=== PATIENT | female | born 1955 | race Caucasian/White ===

== ENCOUNTER → 2020-03-25 10:08 | Outpatient (CLI) | payer OTHER, SELFPAY ==
--- NOTE | 2020-03-25 | DI.MG.S_ITS ---
BILATERAL DIGITAL SCREENING MAMMOGRAM 3D/2D WITH CAD: 03/25/2020 CLINICAL: Routine screening. Comparison is made to exams dated: 03/28/2017 mammogram, 03/27/2016 mammogram, and 10/11/2014 mammogram - [facility]. There are scattered fibroglandular elements in both breasts. Current study was also evaluated with a Computer Aided Detection (CAD) system. No significant masses, calcifications, or other findings are seen in either breast. There has been no significant interval change. IMPRESSION: NEGATIVE There is no mammographic evidence of malignancy. A 1 year screening mammogram is recommended. This exam was interpreted at Station ID: [id number]. NOTE: For mammograms, a report in lay terms will be sent to the patient. Approximately 15% of breast malignancies will not be visualized mammographically. In the management of a palpable breast mass, a negative mammogram must not discourage biopsy of a clinically suspicious lesion. Electronically Signed By: Félix jefferson/garrett:03/27/2020 07:35:12 letter sent: Normal Exam ACR BI-RADS Category 1: Negative 3341F
== END ==
PROVIDERS: PCP Family Medicine; Referring Provider Family Medicine; Visit Provider Family Medicine
DX: Z12.31 Encounter for screening mammogram for malignant neoplasm of breast (principal)
CPT/HCPCS: 77063; 77067

== ENCOUNTER → 2020-04-12 14:50 | Outpatient (CLI) | payer OTHER, SELFPAY ==
--- NOTE | 2020-04-12 15:17 | DI.ECHO.S_ITS ---
Echocardiogram Report + + :Name: SREEDHAR ATWOOD Study Date: 04/12/2020 Height: 64 in : :[facility] Weight: 150 lb : : Gender: Female BSA: 1.7 m2 : :: 1955 Age: 65 yrs BP: 110/64 mmHg: :Reason For Study: CR (E) ST Syndrom : : Performed By: Hyun Gutierrez : :Referring: ALLI DILL : + + Interpretation Summary The left ventricle is normal in size, wall thickness, and systolic function without any focal wall motion abnormalities with the ejection fraction visually estimated to be 65-70%. Left ventricular global longitudinal strain average is normal at -20.2% (normal is more negative than -20%). Diastolic parameters suggest probable normal left ventricular diastolic function and normal filling pressures. The right ventricle is normal in size and function. Pulmonary artery pressures cannot be estimated because of the lack of a measurable TR jet velocity but the IVC suggests a CVP of around 3 mmHg. Both atria are normal in size. There is no significant valvular heart disease. The ascending aorta is mildly enlarged. Procedure: A two-dimensional transthoracic echocardiogram with color flow and Doppler was performed. The study quality was technically adequate. There is no prior echocardiogram noted for this patient. The patient was in normal sinus rhythm during the exam. The heart rate ranged between 64-77 bpm during the study. Left Ventricle: The left ventricle is normal in size, wall thickness, and systolic function without any focal wall motion abnormalities. The ejection fraction is estimated to be 65-70%. Left ventricular global longitudinal strain average is normal at -20.2% (normal is more negative than -20%). Diastolic parameters suggest probable normal left ventricular diastolic function and normal filling pressures. Right Ventricle: The right ventricle is normal in size and function. Atria: Both atria are normal in size. There is no Doppler evidence for an interatrial shunt. Mitral Valve: There is mild mitral annular calcification. The mitral valve leaflets are slightly calcified. There is trace mitral regurgitation. Aortic Valve: The aortic valve is trileaflet. The aortic valve opens well. There is no aortic valve stenosis. No aortic regurgitation is present. Tricuspid Valve: The tricuspid valve is normal in structure and function. There is trace tricuspid regurgitation. Pulmonary artery pressures cannot be estimated because of the lack of a measurable TR jet velocity but the IVC suggests a CVP of around 3 mmHg. Pulmonic Valve: The pulmonic valve is normal in structure and function. There is a trace or physiologic amount of pulmonic regurgitation. There is no significant valvular heart disease. Great Vessels: The aortic root is normal size. The ascending aorta is mildly enlarged. The IVC is of normal diameter and collapses greater than 50% with a sniff. This suggests a low right atrial pressure of 3 mm Hg. Pericardium/ Pleura There is no pericardial effusion. There is no pleural effusion. MMode/2D Measurements & Calculations LVIDd: 4.7 cm LVOT diam: 2.0 cm LVIDs: 3.1 cm Ao root diam: 3.1 cm FS: 34.0 % asc Aorta Diam: 3.4 cm EPSS: 0.43 cm Ao Arch Diam (Prox Trans): 2.6 cm IVSd: 0.78 cm LVPWd: 0.90 cm LV suazo. diameter/BSA (cm/m^2): 2.7 LV sys. diameter/BSA (cm/m^2): 1.8 LA A2 area: 18.9 cm2 RA long axis: 4.8 cm LA A4 area: 16.9 cm2 RA area: 12.4 cm2 LA length (vol): 5.2 cm RA vol: 27.3 ml LA vol: 52.6 ml RA : 15.8 ml/m2 LA vol index: 30.4 ml/m2 IVC diam: 1.5 cm RVD1 (basal): 3.5 cm TAPSE: 2.6 cm Doppler Measurements & Calculations Ao V2 max: 164.8 cm/sec LVOT Max Nelson: 132.5 cm/sec Ao V2 mean: 116.8 cm/sec LV V1 max P.0 mmHg Ao max P.9 mmHg LV V1 VTI: 30.5 cm Ao mean P.0 mmHg GAB(I,D): 2.6 cm2 Ao V2 VTI: 35.3 cm GAB(V,D): 2.4 cm2 sev ratio: 0.86 GAB indexed to BSA (cm^2/m^2): 1.5 MV E max nelson: 77.4 cm/sec PA V2 max: 95.8 cm/sec MV A max nelson: 106.3 cm/sec PA V2 mean: 64.2 cm/sec MV E/A: 0.73 PA mean P.9 mmHg Med Peak E' Nelson: 8.2 cm/sec PA pr(Accel): 56.7 mmHg E/E' med: 9.4 Lat Peak E' Nelson: 8.3 cm/sec E/E' lat: 9.4 E/e' average: 9.4 MV dec time: 0.32 sec [facility] 91.8 ml Reading Physician:PM
== END ==
PROVIDERS: PCP Family Medicine; Referring Provider Internal Medicine Rheumatology; Visit Provider Internal Medicine Rheumatology
DX: M34.1 CR(E)ST syndrome (principal)
CPT/HCPCS: 93306

== ENCOUNTER → 2020-04-18 09:31 | Outpatient (CLI) | payer OTHER, SELFPAY ==
[2020-04-19 14:46] LABS: COVID19 Sendout Not Detected (Not Detect)
== END ==
PROVIDERS: PCP Family Medicine; Visit Provider Physician Assistant
DX: Z01.812 Encounter for preprocedural laboratory examination (principal)
CPT/HCPCS: 87635

== ENCOUNTER → 2020-04-21 12:58 | Outpatient (CLI) | payer OTHER, SELFPAY ==
--- NOTE | 2020-04-25 08:15 | PM.PFT.1 ---
Pulmonary Function Test Referral & Results Date Patient Seen: 04/21/20 Requesting provider: Megan Smith Results: The spirometry demonstrates an FVC of 2.54 L which is 79% of predicted. The FEV1 was measured at 1.60 L which is 65% of predicted. The FEV1/FVC ratio was 63 which is 81% of predicted. No bronchodilator was administered Lung volumes show an SVC of 2.45 L which is 82% of predicted. The diffusing capacity was measured at 16.6 for which is 68% of predicted. No hemoglobin value was provided, so no correction for potential anemia could be made, if appropriate. The maximum voluntary ventilation was reduced Interpretation: This study demonstrates mild to moderate obstructive lung disease based on reduction FEV1 and FEV1/FVC ratio There is also efvg-qe-edliladj restrictive lung disease based on reduction SVC There is also a mild reduction in diffusing capacity suggesting element of disease at the capillary alveolar level
== END ==
PROVIDERS: PCP Family Medicine; Referring Provider Internal Medicine Rheumatology; Visit Provider Internal Medicine Rheumatology
DX: M34.1 CR(E)ST syndrome (principal); J98.8 Other specified respiratory disorders; Z87.891 Personal history of nicotine dependence
CPT/HCPCS: 94010; 94726; 94729

== ENCOUNTER → 2020-08-23 15:24 | Outpatient (CLI) | payer OTHER, SELFPAY ==
--- NOTE | 2020-08-23 | DI.RAD.S_ITS ---
PROCEDURE: XR CHEST 2V INDICATIONS: COUGH TECHNIQUE: 2 views of the chest were acquired. COMPARISON: None. FINDINGS: Surgical changes and devices: None. Lungs and pleura: Minimal curvilinear opacity at the left lung base. No consolidation to suggest pneumonia. No pleural effusions or pneumothorax. Mediastinum: Mediastinal contours are normal. Heart size is normal. Bones and chest wall: No suspicious bony abnormalities. Soft tissues appear unremarkable. IMPRESSION: No consolidation to suggest pneumonia. Suspect mild left basilar atelectasis. Dictated by: Benoit Aranda M.D. on 08/23/2020 at 16:28 Approved by: Benoit Aranda M.D. on 08/23/2020 at 16:31
== END ==
PROVIDERS: PCP Family Medicine; Referring Provider Family Medicine; Visit Provider Family Medicine
DX: R05 Cough (principal)
CPT/HCPCS: 71046

== ENCOUNTER → 2020-09-12 14:41 | Outpatient (CLI) | payer OTHER, SELFPAY | PROVIDERS: PCP Family Medicine; Referring Provider Family Medicine; Visit Provider Family Medicine | DX: M85.88 Other specified disorders of bone density and structure, other site (principal); Z78.0 Asymptomatic menopausal state; Z87.891 Personal history of nicotine dependence | CPT/HCPCS: 77080 ==

== ENCOUNTER 2021-01-10 12:04 | Day surgery (SDC) | payer MEDICARE, OTHER, SELFPAY ==
[2021-01-10] VITALS (9 sets, daily range): BP systolic 113–135; BP diastolic 65–80; PULSE 71–79; RESP 14–93; TEMP 36.5–37.5; O2SAT 93–97; BMI 24.9
--- NOTE | 2021-01-10 | PATH_ITS ---
[facility] Accession Number: [id number] . 01 Material submitted: . body - RANDOM SPURIA. . 01 Clinical history: . SDC . 02 Diagnosis: Random Colon, Biopsies: Collagenous colitis. Negative for granulomas, dysplasia and malignancy. MRV 01/15/2021 1451 Local . 02 Electronically signed: . Jemima Jacinto MD, Pathologist NPI- [id number] . 01 Gross description: . The specimen is received in formalin, labeled random spuria and consists of multiple verdin fragments of soft tissue measuring 1.2 x 1.0 x 0.2 cm in aggregate. The specimen is entirely submitted in cassette A1. ([id number]) /MRV 01/11/2021 1400 Local . 02 Pathologist provided ICD-10: R19.7, K52.89 . 02 CPT . 614116 Performed at: 01 [facility] [address] [facility], [place], [place] [id number] MD Fabrice Gaona MD Phone: [phone] Performed at: 02 [facility] [address] [place], [place] [id number] MD Jemima Jacinto MD Phone: [phone]
[2021-01-10] MEDS: SODIUM CHLORIDE 0.9% 1,000 ML 100 ML IV (12:35)
[2021-01-10 13:17] LABS: COVID19 -Nasal RAPID Negative (Negative)
--- NOTE | 2021-01-10 13:53 | PM.HP.1 ---
History of Present Illness History of Present Illness Date Patient Seen: 01/10/21 Chief complaint: SDC Narrative: Chronic diarrhea Patient History Family & Social History Social History: household members none Tobacco & Substance use: Smoking Status Never smoker alcohol intake former Meds Home Medications and Allergies Home Medications Medication Instructions Recorded Confirmed Type losartan [Cozaar] 50 mg PO QDAY #0 06/04/16 01/10/21 History albuterol sulfate 2 puff INHALATION PRN PRN 01/10/21 01/10/21 History estradiol 10 mcg VAGINAL 2XW 01/10/21 01/10/21 History potassium citrate 10 meq PO DAILY 01/10/21 01/10/21 History Allergies Allergy/AdvReac Type Severity Reaction Status Date / Time Sulfa (Sulfonamide Allergy Severe Rash Verified 01/10/21 12:25 Antibiotics) [SULFA (SULFONAMIDE ANTIBIOTICS)] amoxicillin AdvReac Severe Diarrhea Verified 01/10/21 12:59 Exam Vital Signs (past 8 hours): - 01/10/21 12:54 Temperature 99.5 F Pulse Rate 79 Respiratory Rate 14 Blood Pressure 126/73 Pulse Oximetry 97 Oxygen Delivery Method Room Air Narrative Exam Narrative: Oropharynx free of lesions Chest clear to auscultation percussion Cardiac exam reveals no S3 or murmur Objective Labs Labs: Laboratory Results - last 24 hr 01/10/21 12:50 SARS-CoV-2 (PCR) Negative Assessment & Plan Assessment & Plan narrative: Chronic diarrhea need for colonoscopy with biopsy. Risks, benefits, alternatives have been explained.
--- NOTE | 2021-01-10 13:54 | PM.OP.ENDO ---
Operative Date/Time/Diagnoses Date of procedure: 01/10/21 Pre-op diagnosis: See indication and findings Procedure & Clinicians Study performed: Colonoscopy with biopsy Indications: Chronic diarrhea Surgeon: Oliverio Navarro Procedure Notes Procedure in detail: After informed consent was obtained patient was placed in left lateral decubitus position. The video colonoscope was introduced the rectum slowly advanced to the cecum. Ic valve was identified and intubated. On slow withdrawal mucosa was carefully examined. Preparation was good. The scope was removed. The patient tolerated procedure well. Blood loss none Complications none Sedation Total sedation time 22 minutes Versed he mg fentanyl 150 micro g IV titration Findings 1. Normal terminal ileum 2. Colonoscopy with subtle pattern of patchy erythema throughout. Random biopsies taken to rule out microscopic colitis. We will be in touch regarding the biopsies. Hopefully this will provide some answers. Otherwise follow-up colonoscopy in 10 years.
[2021-01-10] MEDS: fentaNYL 250 MCG/5 ML INJ IV (14:10)
[2021-01-10] MEDS: MIDAZOLAM 5 MG/5 ML VIAL IV (14:10)
--- NOTE | 2021-01-10 14:43 | SUR.PHASEI ---
HOB elevated, fluids given. Denies pain/nausea. Passing flatus. Reposes drowsy/slow but appropriate.
--- NOTE | 2021-01-10 14:48 | SUR.PHASEI ---
Glasses returned to patient upon transfer to [facility]
--- NOTE | 2021-01-10 14:59 | SUR.PHASEII ---
Continues drinking water, relaxing while waiting for ride to come from out of town. Oriented, drowsy
== END 2021-01-10 15:23 | disposition home or self-care (01) ==
PROVIDERS: PCP Family Medicine; Referring Provider Internal Medicine Gastroenterology; Visit Provider Internal Medicine Gastroenterology
PROC: 0DJD8ZZ Inspection of Lower Intestinal Tract, Via Natural or Artificial Opening Endoscopic (ICD-10-PCS; CPT 45378; principal; 2021-01-10 13:00)
DX: K52.831 Collagenous colitis (principal); I10 Essential (primary) hypertension; M34.1 CR(E)ST syndrome; Z20.822 Contact with and (suspected) exposure to COVID-19
CPT/HCPCS: 45380; 87635; J2250; J3010

== ENCOUNTER → 2021-04-14 10:21 | Outpatient (CLI) | payer MEDICARE, OTHER, SELFPAY ==
--- NOTE | 2021-04-14 | DI.MG.S_ITS ---
BILATERAL DIGITAL SCREENING MAMMOGRAM 3D/2D WITH CAD: 04/14/2021 CLINICAL: Routine screening. Comparison is made to exams dated: 03/25/2020 mammogram - [facility], 03/28/2017 mammogram, and 03/27/2016 mammogram - [facility]. There are scattered fibroglandular elements in both breasts. Current study was also evaluated with a Computer Aided Detection (CAD) system. No significant masses, calcifications, or other findings are seen in either breast. There has been no significant interval change. IMPRESSION: NEGATIVE There is no mammographic evidence of malignancy. A 1 year screening mammogram is recommended. This exam was interpreted at Station ID: [id number]. NOTE: For mammograms, a report in lay terms will be sent to the patient. Approximately 15% of breast malignancies will not be visualized mammographically. In the management of a palpable breast mass, a negative mammogram must not discourage biopsy of a clinically suspicious lesion. Electronically Signed By: Fabrice case/garrett:04/16/2021 09:17:45 letter sent: Normal Exam ACR BI-RADS Category 1: Negative 3341F
== END ==
PROVIDERS: PCP Family Medicine; Referring Provider Family Medicine; Visit Provider Family Medicine
DX: Z12.31 Encounter for screening mammogram for malignant neoplasm of breast (principal)
CPT/HCPCS: 77063; 77067

== ENCOUNTER → 2021-07-04 10:02 | Outpatient (CLI) | payer MEDICARE, OTHER, SELFPAY ==
[2021-07-04 11:23] LABS: COVID19 -Nasal RAPID Negative (Negative)
== END ==
PROVIDERS: PCP Family Medicine; Referring Provider Family Medicine; Visit Provider Internal Medicine
DX: Z20.822 Contact with and (suspected) exposure to COVID-19 (principal)
CPT/HCPCS: 87635; C9803

== ENCOUNTER → 2021-07-04 11:46 | Outpatient (CLI) | payer MEDICARE, OTHER, SELFPAY ==
--- NOTE | 2021-07-11 09:52 | PM.PFT.1 ---
Pulmonary Function Test Referral & Results Date Patient Seen: 07/05/21 Requesting provider: Megan Shelby Results: The spirometry demonstrates an FVC of 2.53 L which is 80% of predicted. The FEV1 was measured at 1.56 L which is 64% of predicted. The FEV1/FVC ratio was 62 which is 79% of predicted. Following the administration of bronchodilator there was a 12% improvement in FEV1 and a 45% improvement in FEF 25-75% Lung volumes show an SVC of 2.73 L which is 92% of predicted. The diffusing capacity was measured at 26.02 which is 107% of predicted. The maximum voluntary ventilation was reduced Interpretation: This study demonstrates mild obstructive lung disease based on reduction FEV1. There is some evidence of limited benefit following bronchodilator based on improvement in both FEV1 and FEF 25-75%, suggesting more improvement in small airway flow Compared to PFTs performed in April 2020, current study is essentially unchanged
== END ==
PROVIDERS: PCP Family Medicine; Referring Provider Family Medicine; Visit Provider Family Medicine
DX: R06.02 Shortness of breath (principal); Z20.822 Contact with and (suspected) exposure to COVID-19; Z87.891 Personal history of nicotine dependence; M34.1 CR(E)ST syndrome
CPT/HCPCS: 87635; 94060; 94726; 94729; C9803

== ENCOUNTER → 2021-08-01 11:11 | Outpatient (CLI) | payer MEDICARE, OTHER, SELFPAY ==
--- NOTE | 2021-08-01 11:35 | DI.CT.S_ITS ---
PROCEDURE: CT CHEST W CON INDICATIONS: Shortness of breath TECHNIQUE: After the administration of intravenous contrast, 5 mm thick sections acquired from the pulmonary apices to the posterior costophrenic angles. 1 mm axial lung, 5 mm thick coronal and sagittal reformats and 7 mm axial MIP were acquired. For radiation dose reduction, the following was used: automated exposure control, adjustment of mA and/or kV according to patient size. COMPARISON: [facility], , MM SCREENING MAMMO , 04/14/2021, 10:51. FINDINGS: Image quality: Excellent. Lungs and pleura: Bilateral nodules are present. Nodule 1: 7 mm; left lower lobe; series 3, image 166. Nodule 2: 2 mm; left lower lobe; series 3, image 142. Nodule 3: 3 mm; right upper lobe; series 3, image 136. Nodule 4: 4 mm; right upper lobe; series 3, image 156. Nodule 5: 4 mm; right lower lobe; series 3, image 111. Moderate emphysema. No acute air space opacities. No pleural effusions or pneumothorax. Central and peripheral airways are patent and normal in caliber. Mediastinum: Heart size is normal. Mild coronary artery calcifications. No pericardial effusion. No mediastinal or hilar adenopathy by size criteria. Thoracic aorta and central pulmonary arteries are normal in size. Esophagus is is distended and filled with fluid. Mild concentric thickening of the distal esophagus near the GE junction. Small hiatal hernia. Bones and chest wall: No suspicious bony lesions. No vertebral body compression fractures. No axillary or supraclavicular adenopathy by size criteria. Prominent lymph nodes measuring less than 1 cm in short axis are seen in axillae bilaterally, most likely reactive. Thyroid gland is normal. Abdomen: Mild hepatic steatosis. IMPRESSION: 1. Multiple small lung nodules are present bilaterally. The largest nodule is in the left lower lobe measuring 7 mm, demonstrating mildly spiculated appearance. Recommend a short-term follow-up CT in 3 months. 2. Moderate emphysema. 3. Distended esophagus filled with fluid, likely secondary to gastroesophageal reflux. There is mild concentric thickening of the distal esophagus near the GE junction. Recommend esophagram or upper endoscopy for further evaluation. 4. Mild coronary artery calcifications. 5. Hepatic steatosis. Dictated by: Maritza Lewis M.D. on 08/01/2021 at 11:31 Approved by: Maritza Lewis M.D. on 08/01/2021 at 11:52
== END ==
PROVIDERS: PCP Family Medicine; Referring Provider Family Medicine; Visit Provider Family Medicine
DX: R06.02 Shortness of breath (principal); M34.1 CR(E)ST syndrome; R91.8 Other nonspecific abnormal finding of lung field; J43.9 Emphysema, unspecified; I25.10 Atherosclerotic heart disease of native coronary artery without angina pectoris; K76.0 Fatty (change of) liver, not elsewhere classified
CPT/HCPCS: 71260

== ENCOUNTER → 2021-09-03 13:01 | Outpatient (CLI) | payer MEDICARE, OTHER, SELFPAY ==
--- NOTE | 2021-09-03 | DI.RAD.S_ITS ---
PROCEDURE: FL UPPER GI SERIES INDICATIONS: REFLUX CREST SYNDROME COMPARISON: [facility], CT, CT CHEST W CON, 08/01/2021, 11:28. [facility], CR, BARIUM SWALLOW/ESOPHAG, 09/26/2009, 10:37. [facility], CR, BARIUM SWALLOW/ESOPHAG, 01/07/2012, 12:46. FINDINGS: KUB: Preprocedural clothing pattern preparer film demonstrates a normal bowel gas pattern. No suspicious abdominal calcifications. Visualized solid organ contours appear normal. Bony structures appear unremarkable. Esophagus: Esophagus is diffusely patulous. Esophageal mucosa is normal on air-contrast views. On single-contrast views, there is complete absence of esophageal peristalsis. No strictures, extrinsic mass effects, or diverticula. No hiatal hernia. Gastroesophageal reflux was noted which occurred without provocative maneuvers. There is normal transit of a calibrated barium tablet through the esophagus. Stomach: The stomach demonstrates decreased distensibility, with increased rugal fold thickness. No mucosal masses or ulcers. Pylorus and duodenal bulb appear normal in morphology. Duodenal folds are normal in thickness as well. IMPRESSION: 1. Patulous, nonperistalsing esophagus compatible with severe esophageal dysmotility. 2. Gastroesophageal reflux. 3. Diminished gastric distension with increased rugal full-thickness which could be related to gastritis or infiltrating process. Recommend endoscopy for additional evaluation. Dictated by: Marissa Mclean MD, PhD on 09/03/2021 at 14:41 Approved by: Marissa Mclean MD, PhD on 09/03/2021 at 14:52
== END ==
PROVIDERS: PCP Family Medicine; Referring Provider Family Medicine; Visit Provider Family Medicine
DX: M34.1 CR(E)ST syndrome (principal); K21.9 Gastro-esophageal reflux disease without esophagitis
CPT/HCPCS: 74240

== ENCOUNTER → 2021-11-02 11:34 | Outpatient (CLI) | payer MEDICARE, OTHER, SELFPAY ==
--- NOTE | 2021-11-02 | DI.CT.S_ITS ---
PROCEDURE: CT CHEST WO CON INDICATIONS: Solitary pulmonary nodule TECHNIQUE: Noncontrast 5 mm thick sections acquired from the pulmonary apices to the posterior costophrenic angles. 1 mm lung window, 5 mm thick coronal and sagittal and 7 mm axial MIP reformats were then acquired. For radiation dose reduction, the following was used: automated exposure control, adjustment of mA and/or kV according to patient size. COMPARISON: [facility], CT, CT CHEST W CON, 08/01/2021, 11:28. FINDINGS: Image quality: Excellent. Lungs and pleura: Pulmonary nodules are as follows: 1. Stable 7 mm pulmonary nodule, left lower lobe, current image 174/3. 2. Stable 2 mm pulmonary nodule, left lower lobe, image 152/3. 3. Stable 2 mm pulmonary nodule, right upper lobe, current image 135/3. 4. Stable 3 mm nodule, subpleural location, right lower lobe, image 125/3. 5. Stable pleural based pulmonary nodule, right upper lobe, 5 mm, current image 68/3 and previous image 55/3. 6. Calcified granuloma, right lower lobe, image 44/2. Stable biapical pleuroparenchymal scarring. Moderate emphysematous change. No acute air space opacities. No pleural effusions or pneumothorax. Central and peripheral airways are patent and normal in caliber. Mediastinum: Heart size is normal. No pericardial effusion. Moderate coronary artery calcifications. No mediastinal adenopathy by size criteria. Thoracic aorta and central pulmonary arteries are normal in size. Esophagus is again noted to be dilated and fluid-filled with mild thickening near the GE junction. Bones and chest wall: No suspicious bony lesions. No vertebral body compression fractures. No axillary or supraclavicular adenopathy by size criteria. Thyroid gland is unremarkable as visualized . Abdomen: Visualized upper abdominal solid organs and bowel loops appear normal in the absence of contrast. IMPRESSION: 1. Pulmonary emphysema. 2. Coronary artery disease. 3. Multiple pulmonary nodules are stable. 4. Dilated fluid-filled esophagus with mild concentric wall thickening near the GE junction. Recommend esophagram or upper endoscopy if this has not yet been performed. 5. Chronic granulomatous disease. Dictated by: Jose Daniel Rios M.D. on 11/02/2021 at 15:58 Approved by: Jose Daniel Rios M.D. on 11/02/2021 at 16:08
== END ==
PROVIDERS: PCP Family Medicine; Referring Provider Family Medicine; Visit Provider Family Medicine
DX: R91.8 Other nonspecific abnormal finding of lung field (principal); J43.8 Other emphysema; I25.10 Atherosclerotic heart disease of native coronary artery without angina pectoris; J84.10 Pulmonary fibrosis, unspecified; K22.89 Other specified disease of esophagus
CPT/HCPCS: 71250

== ENCOUNTER → 2022-04-24 13:14 | Outpatient (CLI) | payer MEDICARE, OTHER, SELFPAY ==
--- NOTE | 2022-04-24 | DI.MG.S_ITS ---
BILATERAL DIGITAL SCREENING MAMMOGRAM 3D/2D WITH CAD: 04/24/2022 CLINICAL: Routine screening. Comparison is made to exams dated: 04/14/2021 mammogram, 03/25/2020 mammogram - [facility], 03/28/2017 mammogram, and 03/27/2016 mammogram - [facility]. There are scattered fibroglandular elements in both breasts. Current study was also evaluated with a Computer Aided Detection (CAD) system. No significant masses, calcifications, or other findings are seen in either breast. There has been no significant interval change. IMPRESSION: NEGATIVE There is no mammographic evidence of malignancy. A 1 year screening mammogram is recommended. Based on the Tyrer Cuzick model (a risk assessment model) the patient's lifetime risk is 7.6% and her 10 year risk is 3.8%. According to the ACR, ACS, and NCCN guidelines, an annual breast MRI exam along with mammogram is recommended if the patient's lifetime risk is 20% or greater. This exam was interpreted at Station ID: [id number]. NOTE: For mammograms, a report in lay terms will be sent to the patient. Approximately 15% of breast malignancies will not be visualized mammographically. In the management of a palpable breast mass, a negative mammogram must not discourage biopsy of a clinically suspicious lesion. Electronically Signed By: Benoit cannon/garrett:04/24/2022 17:44:37 letter sent: Normal Exam ACR BI-RADS Category 1: Negative 3341F
== END ==
PROVIDERS: PCP Family Medicine; Referring Provider Family Medicine; Visit Provider Family Medicine
DX: Z12.31 Encounter for screening mammogram for malignant neoplasm of breast (principal)
CPT/HCPCS: 77063; 77067

== ENCOUNTER → 2022-10-18 10:47 | Outpatient (CLI) | payer MEDICARE, OTHER, SELFPAY | PROVIDERS: PCP Family Medicine; Referring Provider Family Medicine; Visit Provider Family Medicine | DX: Z78.0 Asymptomatic menopausal state (principal); M85.88 Other specified disorders of bone density and structure, other site | CPT/HCPCS: 77080 ==

== ENCOUNTER → 2022-12-25 13:18 | Outpatient (CLI) | payer MEDICARE, OTHER, SELFPAY ==
--- NOTE | 2022-12-25 | DI.CT.S_ITS ---
PROCEDURE: CT CHEST WO CON INDICATIONS: Solitary pulmonary nodule TECHNIQUE: Noncontrast 2.0-2.5 mm thick sections acquired from the pulmonary apices to the posterior costophrenic angles. 7 mm thick axial MIP and 5 mm coronal and sagittal reformats were then acquired. A low radiation dose technique was utilized. COMPARISON: [facility], CT, CT CHEST W CON, 08/01/2021, 11:28. [facility], CT, CT CHEST WO CON, 11/02/2021, 11:46. FINDINGS: Image quality: Diagnostic, given the low radiation dose technique. Lungs and pleura: There is bilateral apical scarring, as before. There is moderate emphysema with an apical predominance. A 5 mm pulmonary nodule is unchanged within the right middle lobe when compared with the CT dated November 02, 2021 (series 3/image 183). A 4 mm pulmonary nodule at the lateral right lung base is also unchanged (series 3/image 214). Peripheral interlobular septal thickening is present suggesting early fibrotic change. An 8 mm left lower lobe pulmonary nodule is unchanged when compared with the study dated August 01, 2021 (series 3/image 177). No new pulmonary nodules. No acute airspace opacities. No pleural effusion or pneumothorax. Mediastinum: Heart size is normal. No pericardial effusion. No mediastinal adenopathy by size criteria. Thoracic aorta and central pulmonary arteries are normal in size. Scattered atheromatous calcifications are present within the aortic arch. Esophagus is normal in caliber. No hiatal hernia. Bones and chest wall: No suspicious bony lesions. No vertebral body compression fractures. No axillary or supraclavicular adenopathy by size criteria. Thyroid gland is unremarkable . Abdomen: Visualized upper abdomen solid organs and bowel loops appear normal in the absence of contrast. IMPRESSION: 1. Stable pulmonary nodules as above, the largest of which measures 8 mm in diameter. These have demonstrated approximately 18 months stability. Please see follow-up guidelines below. Fleischner Society criteria for SOLID lung nodule followup. Nodule size (mm)Low-risk patientHigh-risk patient<6 (single or multiple)No routine followup.Optional CT at 12 months. 6-8 (single or multiple)CT at 6-12 months, then optional CT at 18-24 mo.CT at 6-12 months, then CT at 18-24 months. >8 (single)CT at 3 months, PET-CT, or biopsy. Same as for low-risk pts. >8 (multiple)CT at 3-6 months, then optional CT at 18-24 mo.CT at 3-6 months, then CT at 18-24 months. Fleischner Society criteria for SUB-SOLID lung nodule followup. Solitary pure ground-glass nodules<6 mm (ground glass or part solid)No followup needed. 6 mm or larger (ground glass)CT at 6-12 months to confirm persistence, then CT every 2 years until 5 years.6 mm or larger (part solid)CT at 3-6 months to confirm persistence, then annual CT until 5 years if unchanged and solid component remains <6 mm. Multiple sub-solid nodules<6 mmCT at 3-6 months, then CT consider at 2 & 4 years for high risk patients. [address] at 3-6 months. Subsequent management based on most suspicious lesions. Recommendations do not apply to lung cancer screening, patients with immunosuppression, or patients with known primary cancer. Dictated by: Nubia Cortez M.D. on 12/25/2022 at 15:57 Approved by: Nubia Cortez M.D. on 12/25/2022 at 16:17
== END ==
PROVIDERS: PCP Family Medicine; Referring Provider Family Medicine; Visit Provider Family Medicine
DX: R91.8 Other nonspecific abnormal finding of lung field (principal)
CPT/HCPCS: 71250

== ENCOUNTER → 2023-06-10 08:28 | Outpatient (CLI) | payer MEDICARE, OTHER, SELFPAY ==
--- NOTE | 2023-06-10 | DI.MG.S_ITS ---
BILATERAL DIGITAL SCREENING MAMMOGRAM 3D/2D WITH CAD: 06/10/2023 CLINICAL: Routine screening. Comparison is made to exams dated: 04/24/2022 mammogram, 04/14/2021 mammogram, and 03/25/2020 mammogram - [facility]. There are scattered areas of fibroglandular density in both breasts (category b / 25%-50% glandular tissue). Current study was also evaluated with a Computer Aided Detection (CAD) system. No significant masses, calcifications, or other findings are seen in either breast. There has been no significant interval change. IMPRESSION: NEGATIVE There is no mammographic evidence of malignancy. A 1 year screening mammogram is recommended. Based on the Tyrer Cuzick model (a risk assessment model) the patient's lifetime risk is 7.2% and her 10 year risk is 3.8%. According to the ACR, ACS, and NCCN guidelines, an annual breast MRI exam along with mammogram is recommended if the patient's lifetime risk is 20% or greater. This exam was interpreted at Station ID: [id number]. NOTE: For mammograms, a report in lay terms will be sent to the patient. Approximately 15% of breast malignancies will not be visualized mammographically. In the management of a palpable breast mass, a negative mammogram must not discourage biopsy of a clinically suspicious lesion. Electronically Signed By: Félix Mcconnell M.D. aty/:06/15/2023 13:51:09 letter sent: Normal Exam ACR BI-RADS Category 1: Negative [id number]
--- NOTE | 2023-06-10 | DI.ECHO.S_ITS ---
[facility] +---------+ : : [address] : [place] : : : : [id number] : : : : Phone: [phone] Echocardiogram Report + + :Name: SREEDHAR ATWOOD Study Date: 06/10/2023 Height: 64 in : :[facility] ReadingLocation: Weight: 140 lb : : Gender: Female BSA: 1.7 m2 : :: 1955 Age: 68 yrs BP: 160/92 mmHg: :Reason For Study: Hypertension : :Ordering Physician: FRANCES, : :ALLI Performed By: Di Jay : :Referring: ALLI DANIELS : + + Interpretation Summary Normal left ventricle size with ejection fraction 60-65%. Mild aortic valve sclerosis. Mild to moderate mitral annular calcification. Mild mitral regurgitation. The ascending aorta is at the upper limits of normal in size. Procedure: A two-dimensional transthoracic echocardiogram with color flow and Doppler was performed. The study quality was technically adequate. Comparison is made with the echocardiogram of 04/12/2020. The patient was in normal sinus rhythm during the exam. Left Ventricle: The left ventricle is normal in size and wall thickness. The ejection fraction is estimated to be 60-65%. There are no focal wall motion abnormalities. Diastolic parameters suggest a relaxation abnormality of the left ventricle, consistent with probable normal filling pressures. Right Ventricle: The right ventricle is normal in size and function. Atria: The left atrial size is normal. The right atrium is borderline dilated. There is no Doppler evidence for an interatrial shunt. Mitral Valve: The mitral valve leaflets appear moderately thickened, but open well. There is mild to moderate mitral annular calcification. There is no mitral valve stenosis. There is mild mitral regurgitation. Aortic Valve: The aortic valve is trileaflet. There is mild aortic valve sclerosis. There is no aortic valve stenosis. No aortic regurgitation is present. Tricuspid Valve: Tricuspid leaflets are thickened. There is no tricuspid stenosis. There is trace tricuspid regurgitation. The right ventricular systolic pressure is estimated to be at least 22 mmHg based on an estimated right atrial pressure of 3 mm Hg. Pulmonic Valve: The pulmonic valve leaflets are thin and pliable; valve motion is normal. There has been no significant change since the previous study. There is trace pulmonic regurgitation. Great Vessels: The aortic root is normal size. The ascending aorta is at the upper limits of normal in size. The pulmonary artery is normal size. The IVC is of normal diameter and collapses greater than 50% with a sniff. This suggests a low right atrial pressure of 3 mm Hg. Pericardium/ Pleura There is a trivial pericardial effusion noted. MMode/2D Measurements & Calculations LVIDd: 4.6 cm LVOT diam: 1.7 cm LVIDs: 2.6 cm Ao root diam: 2.9 cm FS: 43.5 % asc Aorta Diam: 3.7 cm IVSd: 0.80 cm LVPWd: 0.80 cm LV suazo. diameter/BSA (cm/m^2): 2.7 LV sys. diameter/BSA (cm/m^2): 1.5 LA A2 area: 12.6 cm2 RA long axis: 5.0 cm LA A4 area: 14.9 cm2 RA area: 16.3 cm2 LA length (vol): 4.4 cm RA vol: 45.7 ml LA vol: 36.6 ml RA : 27.2 ml/m2 LA vol index: 21.7 ml/m2 RVD1 (basal): 3.5 cm LVLs ap4: 6.7 cm LVLd ap2: 7.9 cm TAPSE_phl: 2.8 cm LVLs ap2: 6.6 cm Doppler Measurements & Calculations Ao V2 max: 153.0 cm/sec LVOT Max Nelson: 107.3 cm/sec Ao V2 mean: 107.0 cm/sec LV V1 max P.6 mmHg Ao max P.0 mmHg LV V1 VTI: 27.0 cm Ao mean P.3 mmHg GAB(I,D): 1.6 cm2 Ao V2 VTI: 38.1 cm GAB(V,D): 1.6 cm2 sev ratio: 0.71 GAB indexed to BSA (cm^2/m^2): 0.96 MV E max nelson: 104.0 cm/sec TR max nelson: 213.0 cm/sec MV A max nelson: 120.0 cm/sec TR max P.5 mmHg MV E/A: 0.87 PA V2 max: 99.9 cm/sec Med Peak E' Nelson: 8.8 cm/sec PA V2 mean: 67.3 cm/sec E/E' med: 11.9 PA mean P.0 mmHg Lat Peak E' Nelson: 9.9 cm/sec PA pr(Accel): 17.3 mmHg E/E' lat: 10.6 E/e' average: 11.2 MV dec time: 0.24 sec SV(LVOT): 61.4 ml AV VR_phl: 0.70 GAB(VTI)/BSA_phl: 0.96 Electronically signed by: Karsten Vazquez on Reading Physician:06/10/2023 12:46 PM
== END ==
PROVIDERS: PCP Family Medicine; Referring Provider Family Medicine; Visit Provider Family Medicine
DX: Z12.31 Encounter for screening mammogram for malignant neoplasm of breast (principal); M34.1 CR(E)ST syndrome; I08.0 Rheumatic disorders of both mitral and aortic valves; I10 Essential (primary) hypertension
CPT/HCPCS: 77063; 77067; 93306

== ENCOUNTER → 2023-09-06 09:39 | Outpatient (CLI) | payer MEDICARE, OTHER, SELFPAY ==
--- NOTE | 2023-09-06 | DI.RAD.S_ITS ---
PROCEDURE: XR WRIST LT MIN 3V INDICATIONS: WRIST PAIN TECHNIQUE: 3 views of the wrist were acquired. COMPARISON: None. FINDINGS: Bones: No fractures or dislocations. No suspicious bony lesions. Severe degenerative changes are present at the radiocarpal and ulnar carpal joints. Soft tissues: No suspicious soft tissue calcifications. IMPRESSION: Severe degenerative change. No acute radiographic findings. If pain persists, followup imaging or cross-sectional imaging could be used to further characterize findings. Dictated by: Nubia Cortez M.D. on 09/07/2023 at 19:02 Approved by: Nubia Cortez M.D. on 09/07/2023 at 19:03
--- NOTE | 2023-09-06 | DI.MRI.S_ITS ---
PROCEDURE: MR SHOULDER LT WO CON INDICATIONS: Megan Shelby TECHNIQUE: Noncontrast oblique coronal T2 fast spin echo with fat saturation, oblique sagittal T1 spin echo and T2 fast spin echo with fat saturation, axial T1 spin echo and T2 fast spin echo with fat saturation through the shoulder. COMPARISON: None. FINDINGS: Image quality: Excellent. Rotator cuff: Moderate grade articular and bursal surface partial thickness tear involving distal supraspinatus and infraspinatus at their insertions on humeral head is seen extending to musculotendinous junction. Low-grade intrasubstance partial-thickness tear involving distal subscapularis is also seen. Sagittal images demonstrate mild supraspinatus muscle atrophy. Bones and bursae: No bone marrow contusions or fractures. Moderate acromioclavicular joint osteoarthritic changes are seen with joint space narrowing and downward osteophyte formation depressing the musculotendinous junction of supraspinatus. Mild to moderate glenohumeral joint osteoarthritic changes are seen. The acromion demonstrates conventional anatomy, without an os acromiale. There is small to moderate amount of subacromial subdeltoid bursal fluid. Capsule and soft tissues: Fraying of superior anterior labrum with signal abnormality at 12 to 1 o'clock position is seen suggestive of superior anterior labral tear. The long head of the biceps tendon appears mildly thickened. The rotator interval appears normal, without fibrosis. The coracohumeral ligament is normal in thickness. IMPRESSION: 1. Moderate grade articular and bursal surface partial thickness tear involving distal supraspinatus and infraspinatus extending to musculotendinous junction. Low-grade intrasubstance partial-thickness tear involving distal subscapularis. No full-thickness rotator cuff tendon rupture. Mild supraspinatus muscle atrophy. 2. Moderate acromioclavicular joint osteoarthritis and [id number] glenohumeral joint osteoarthritis. No fracture or dislocation. Small to moderate amount of subacromial subdeltoid bursal fluid, no gross loose bodies. 3. Suggestion of superior anterior labral tear at 12 to 1 o'clock position. 4. Proximal long head of biceps tendinosis. Dictated by: Jose L Pierre M.D. on 09/08/2023 at 11:09 Approved by: Jose L Pierre M.D. on 09/08/2023 at 11:11
== END ==
PROVIDERS: PCP Family Medicine; Referring Provider Family Medicine; Visit Provider Family Medicine
DX: M75.112 Incomplete rotator cuff tear or rupture of left shoulder, not specified as traumatic (principal); M19.012 Primary osteoarthritis, left shoulder; M25.532 Pain in left wrist; M75.82 Other shoulder lesions, left shoulder
CPT/HCPCS: 73110; 73221

== ENCOUNTER → 2023-11-11 10:46 | Outpatient (CLI) | payer MEDICARE, OTHER, SELFPAY ==
--- NOTE | 2023-11-11 10:53 | DI.CT.S_ITS ---
PROCEDURE: CT CHEST WO CON INDICATIONS: LUNG NODULE TECHNIQUE: Noncontrast 5 mm thick sections acquired from the pulmonary apices to the posterior costophrenic angles. 1 mm lung window, 5 mm thick coronal and sagittal and 7 mm axial MIP reformats were then acquired. For radiation dose reduction, the following was used: automated exposure control, adjustment of mA and/or kV according to patient size. COMPARISON: [facility], CT, CT CHEST WO CON, 12/25/2022, 13:55. FINDINGS: Cardiovascular and Mediastinum: Heart size is normal. No evidence of thoracic aortic aneurysm. Pulmonary vasculature is unremarkable. Thyroid gland unremarkable. Atherosclerotic vascular calcification noted in the aortic arch and coronary vessels. Patulous esophagus contains fluid and debris, moderate distal hiatal hernia present. Lungs and Pleural Spaces: Stable biapical pulmonary scarring and underlying emphysematous changes of both lungs with small pulmonary cysts. Subpleural scarring is also stable. In the left lower lobe, pleural based rounded nodule on image 3/175 are remains unchanged measuring 8 mm. Additional smaller nodules include right middle lobe 5 mm nodule6 image 3/185 and benign 4 mm nodule in the right middle lobe on image 3/213. Additional smaller nodules are also stable. No new nodules. Lymph Nodes: No mediastinal, hilar or axillary adenopathy. Musculoskeletal: No evidence of rib fracture. Thoracic spine unremarkable. Chest wall and sternum intact. No lytic or blastic lesions. Upper abdomen: Visualized portions of the liver, spleen and kidneys are unremarkable. . IMPRESSION: 1. Stable bilateral pulmonary nodules all measuring 8 mm or less show greater than 2 year stability. Follow-up guidelines have been filled 2. Patulous esophagus with distal hiatal hernia is filled with fluid and debris Approved by: Rolf Sifuentes M.D. on 11/11/2023 at 17:47
== END ==
LOC: CT 10:47
PROVIDERS: PCP Family Medicine; Referring Provider Family Medicine; Visit Provider Family Medicine
DX: R91.8 Other nonspecific abnormal finding of lung field (principal); K44.9 Diaphragmatic hernia without obstruction or gangrene; K22.9 Disease of esophagus, unspecified
CPT/HCPCS: 71250

== ENCOUNTER → 2024-07-31 08:11 | Outpatient (CLI) | payer MEDICARE, OTHER, SELFPAY ==
--- NOTE | 2024-07-31 08:12 | DI.MG.S_ITS ---
BILATERAL DIGITAL SCREENING MAMMOGRAM 3D/2D WITH CAD: 07/31/2024 CLINICAL: Routine screening. Comparison is made to exams dated: 06/10/2023 mammogram, 04/24/2022 mammogram, and 04/14/2021 mammogram - [facility]. There are scattered areas of fibroglandular density (category b / 25%-50% glandular tissue). Current study was also evaluated with a Computer Aided Detection (CAD) system. There is a possible developing irregular high density asymmetry in the right breast central to the nipple anterior depth. No other significant masses, calcifications, or other findings are seen in either breast. IMPRESSION: INCOMPLETE: NEED ADDITIONAL IMAGING EVALUATION The possible developing irregular high density asymmetry in the right breast is indeterminate. Additional views with possible ultrasound are recommended. Based on the Tyrer Cuzick model (a risk assessment model) the patient's lifetime risk is 6.8% and her 10 year risk is 3.8%. According to the ACR, ACS, and NCCN guidelines, an annual breast MRI exam along with mammogram is recommended if the patient's lifetime risk is 20% or greater. This exam was interpreted at Station ID: [id number]. NOTE: For mammograms, a report in lay terms will be sent to the patient. Approximately 15% of breast malignancies will not be visualized mammographically. In the management of a palpable breast mass, a negative mammogram must not discourage biopsy of a clinically suspicious lesion. Electronically Signed By: Meryl dorsey/:08/03/2024 09:56:44 letter sent: Additional Imaging Needed ACR BI-RADS Category 0: Incomplete: Need Additional Imaging Evaluation
== END ==
PROVIDERS: PCP Family Medicine; Referring Provider Family Medicine; Visit Provider Family Medicine
DX: Z12.31 Encounter for screening mammogram for malignant neoplasm of breast (principal)
CPT/HCPCS: 77063; 77067

== ENCOUNTER → 2024-08-25 | Outpatient (CLI) | payer MEDICARE, OTHER, SELFPAY ==
--- NOTE | 2024-08-25 11:48 | DI.US.S_ITS ---
LIMITED ULTRASOUND OF RIGHT BREAST AND AXILLA: 08/25/2024 CLINICAL: Patient returns today to evaluate an asymmetry in the right breast. Comparison is made to exams dated: 08/25/2024 mammogram, 07/31/2024 mammogram, 06/10/2023 mammogram, 04/24/2022 mammogram, 04/14/2021 mammogram, and 03/25/2020 mammogram - [facility]. Color flow and real-time ultrasound of the right breast 10 o'clock, and axilla regions were performed. Callaway scale images of the real-time examination were reviewed. There is a 0.8 cm x 0.5 cm x 0.9 cm oval mass with an indistinct margin in the right breast at 10 o'clock, 1.5 cm from the nipple. This oval mass is hypoechoic. This correlates with mammography findings. No abnormal lymph nodes are seen in the axilla. IMPRESSION: SUSPICIOUS Right breast 0.9 cm oval mass at 10 o'clock position. Finding is suspicious. An ultrasound guided biopsy is recommended. Findings and recommendations were discussed with the patient by Dr. Salazar by phone at the time of imaging completion. This exam was interpreted at Station ID: [id number]. Electronically Signed By: Gianna Salazar M.D., Ph.D. eb/:08/26/2024 22:23:49 letter sent: Biopsy Required ACR BI-RADS Category 4: Suspicious
--- NOTE | 2024-08-25 11:48 | DI.MG.S_ITS ---
UNILATERAL RIGHT DIGITAL DIAGNOSTIC MAMMOGRAM 3D/2D WITH ADDITIONAL VIEWS: 08/25/2024 CLINICAL: Additional evaluation requested from prior study. Comparison is made to exams dated: 06/10/2023 mammogram, 07/31/2024 mammogram, 04/24/2022 mammogram, 04/14/2021 mammogram, and 03/25/2020 mammogram - [facility]. There are scattered areas of fibroglandular density (category b / 25%-50% glandular tissue). There is a focal asymmetry in the right breast at 10 o'clock anterior depth. This is seen in additional views. No other significant masses or calcifications are seen in the breast. IMPRESSION: INCOMPLETE: NEED ADDITIONAL IMAGING EVALUATION The focal asymmetry in the right breast is indeterminate. An ultrasound is recommended for further evaluation and is scheduled to immediately follow this examination. Based on the Tyrer Cuzick model (a risk assessment model) the patient's lifetime risk is 6.8% and her 10 year risk is 3.8%. According to the ACR, ACS, and NCCN guidelines, an annual breast MRI exam along with mammogram is recommended if the patient's lifetime risk is 20% or greater. This exam was interpreted at Station ID: [id number]. NOTE: For mammograms, a report in lay terms will be sent to the patient. Approximately 15% of breast malignancies will not be visualized mammographically. In the management of a palpable breast mass, a negative mammogram must not discourage biopsy of a clinically suspicious lesion. Electronically Signed By: Gianna Salazar M.D., Ph.D. eb/:08/26/2024 22:20:12 letter sent: Additional Imaging Needed ACR BI-RADS Category 0: Incomplete: Need Additional Imaging Evaluation
== END ==
LOC: MAMMO 11:47
PROVIDERS: PCP Family Medicine; Referring Provider Family Medicine; Visit Provider Family Medicine
DX: R92.8 Other abnormal and inconclusive findings on diagnostic imaging of breast (principal); N63.11 Unspecified lump in the right breast, upper outer quadrant
CPT/HCPCS: 76642; 77065; G0279

== ENCOUNTER → 2024-09-17 | Outpatient (CLI) | payer MEDICARE, OTHER, SELFPAY ==
--- NOTE | 2024-09-17 08:47 | DI.US.S_ITS ---
PROCEDURE: US BX BREAST PERC W VAC DEVICE COMPARISON: None. INDICATIONS: MASS OF RIGHT BREAST FINDINGS: The previously seen right breast hypoechoic mass at 10:00 a.m. Approximately 1.5 cm from the nipple at middle depth was identified with preliminary ultrasound after consent had been obtained. The skin was marked. The patient was prepped and draped in the usual sterile fashion. Local anesthetic was provided with 1% lidocaine, which was infiltrated beneath the mass and along the course of the biopsy needle. A small incision was made and the vacuum assisted biopsy needle was advanced to beneath the mass. A total of 5 vacuum assisted biopsy samples were obtained and the needle was removed from the needle guide. A biopsy clip was inserted through the needle guide and under ultrasound guidance was deployed into the biopsy bed. The patient tolerated the procedure well. IMPRESSION: Biopsy of the right breast mass at 10:00 a.m. Approximately 1.5 cm from the nipple. Dictated by: Fabrice Castillo M.D. on 09/17/2024 at 14:57 Approved by: Fabrice Castillo M.D. on 09/17/2024 at 15:13
--- NOTE | 2024-09-17 08:48 | DI.MG.S_ITS ---
UNILATERAL RIGHT DIGITAL DIAGNOSTIC MAMMOGRAM 3D/2D POST-PROCEDURE IMAGING FOR MARKER PLACEMENT: 09/17/2024 CLINICAL: Right post clip. Comparison is made to exams dated: 08/25/2024 ultrasound, 08/25/2024 mammogram, and 07/31/2024 mammogram - [facility]. There are scattered areas of fibroglandular density (category b / 25%-50% glandular tissue). There is a marker clip in the appropriate position in the right breast central to the nipple anterior depth. This may be displaced posteriorly due to a small hematoma. IMPRESSION: POST PROCEDURE MAMMOGRAM FOR MARKER PLACEMENT There was a successful marker clip placement in the right breast central to the nipple anterior depth. Future imaging is recommended as follows: 03/19/2025 left mammogram and an ultrasound of a separate finding. Based on the Tyrer Cuzick model (a risk assessment model) the patient's lifetime risk is 6.8% and her 10 year risk is 3.8%. According to the ACR, ACS, and NCCN guidelines, an annual breast MRI exam along with mammogram is recommended if the patient's lifetime risk is 20% or greater. This exam was interpreted at Station ID: [id number]. NOTE: For mammograms, a report in lay terms will be sent to the patient. Approximately 15% of breast malignancies will not be visualized mammographically. In the management of a palpable breast mass, a negative mammogram must not discourage biopsy of a clinically suspicious lesion. Electronically Signed By: Meryl dorsey/:10/04/2024 10:51:29 ACR BI-RADS Category Post-Procedure Mammogram for Marker Placement
--- NOTE | 2024-09-17 10:40 | PATH_ITS ---
[facility] Accession Number: [id number] No. of containers..01 Tissue . 01 Material submitted: . breast - RIGHT BREAST 10:00 1 CM FN . 01 Diagnosis: RIGHT BREAST, 10 O'CLOCK, 1 CM FN, IMAGE-GUIDED STEREOTACTIC BIOPSIES: Benign breast parenchyma with marked stromal dense hyalinizing fibrosis, please see comment, and focal mild chronic periductal inflammation. Negative for in situ or invasive carcinoma. MRV 09/20/2024 1301 Local . 01 Comment: The histologic findings may represent sampling of fibroadenoma. . Clinical and radiologic correlation is recommended. . In the submitted sample, there is no evidence of in situ or invasive carcinoma. . 01 Electronically signed: . Chelle Chaudhari MD, Pathologist NPI- [id number] . 01 Gross description: . Received in formalin, labeled with two identifiers and right 10 o'clock, are multiple yellow to verdin soft tissue fragments admixed with hemorrhagic material aggregating to 3.5 x 3.0 x 0.3 cm. The specimen is submitted entirely in cassettes A1-A2. . The specimen was removed on 09/17/2024 at 10:40. Time in formalin not provided. Cold ischemic time cannot be calculated. Total fixation time is approximately 52 hours. ([id number]) /FRR 09/18/2024 1116 Local . 01 Pathologist provided ICD-10: N63.10 . 01 CPT . 638416 Specimen Comment: A courtesy copy of this report has been sent to [phone] Performed at: [address] [facility] [address] [address], [place], [place] [id number] MD Fabrice Gaona MD Phone: [phone]
== END ==
PROVIDERS: PCP Family Medicine; Referring Provider Family Medicine; Visit Provider Family Medicine
DX: N63.11 Unspecified lump in the right breast, upper outer quadrant (principal); N60.31 Fibrosclerosis of right breast; N61.0 Mastitis without abscess
CPT/HCPCS: 19083; 77065

== ENCOUNTER → 2025-05-04 09:21 | Outpatient (CLI) | payer MEDICARE, OTHER, SELFPAY ==
--- NOTE | 2025-05-04 09:22 | DI.MG.S_ITS ---
MM diagnostic mammo BI, US breast RT limited: 05/04/2025 BI-RADS: 2 CLINICAL: 70-year old female for bilateral diagnostic mammogram and right diagnostic breast ultrasound that is a follow-up to diagnostic, right, digital, tomosynthesis, post-proc marker justice on 09/17/2024. [facility] lifetime risk of 10.9%. No personal or first-degree family history of breast cancer. The patient had a prior right breast biopsy. PRIOR EXAMS 09/17/2024, 08/25/2024, 07/31/2024, 06/10/2023, 04/24/2022, 03/27/2016. MAMMOGRAPHY TECHNIQUE: 2D and 3D (tomosynthesis) digital mammographic views obtained, with additional images as needed for full coverage. Current study was also evaluated with a Computer Aided Detection (CAD) system. ULTRASOUND TECHNIQUE Real-time wick scale imaging of the area of clinical interest was performed with image documentation. Right targeted breast ultrasound of the area of clinical interest and the axilla was performed with image documentation. DENSITY C. The breasts are heterogeneously dense, which may obscure small masses. MAMMOGRAPHY FINDINGS Right (finding-1): Upper Outer at 10:00, Anterior depth: There is a stable focal asymmetry present. A biopsy microclip is associated with the focal asymmetry corresponding to benign pathology. Left: No suspicious mass, asymmetry, microcalcification, or other abnormality seen. No significant change from comparison. ULTRASOUND FINDINGS Right (finding-1): Upper Outer at 10:00, 1.5 cm from nipple, measuring 1 x 0.7 x 1 cm: There is an area of non-specific acoustic shadowing. This previously measured 0.8 x 0.5 x 0.9 cm and is stable allowing for differences in technique. IMPRESSION: Right * No evidence of malignancy with benign findings. Left * No evidence of malignancy. RECOMMENDATIONS Bilateral * Annual screening mammography in one year. COMMENTS: Findings and recommendations were conveyed to the patient during today's evaluation. OVERALL ASSESSMENT CATEGORY BI-RADS-2: Benign. [employer] recommends annual screening mammography beginning at age 40 for women with average risk of breast cancer. ELECTRONICALLY SIGNED: Phyllis Cooper M.D. on 05/04/2025 at 11:23:07 AM PT Interpreting Station ID: [id number]
== END ==
LOC: MAMMO 09:22
PROVIDERS: PCP Family Medicine; Referring Provider Family Medicine; Visit Provider Family Medicine
DX: R92.8 Other abnormal and inconclusive findings on diagnostic imaging of breast (principal); N63.10 Unspecified lump in the right breast, unspecified quadrant; R92.333 Mammographic heterogeneous density, bilateral breasts
CPT/HCPCS: 76642; 77066; G0279